=== PATIENT | male | born 1950 | race Caucasian/White ===

== ENCOUNTER 2019-05-15 12:12 | Day surgery (SDC) | payer MEDICARE ==
[~2019-05-15] VITALS: Ht 188 cm; Wt 106.8 kg
[~2019-05-15 12:12] MED LIST: ASPI325EC; Aspir 8181 MG PO; HYDCHL25 PO; Mobic15 MG PO; RXOXYACE PO
--- NOTE | 2019-05-15 14:16 | NUR ---
05/15/19 1416 Tiki Smith PT INTO RECLINER WITHOUT DIFFICULTY. PT DENIES PAIN AND NAUSEA AT THIS TIME. TOLERATING JUICE WELL. ICE AND ELEVATION IMPLEMENTED. VSS
== END 2019-05-15 14:55 | disposition home or self-care (01) ==
LOC: ORSCSDS 12:12
PROVIDERS: Podiatrist Foot & Ankle Surgery
PROC: 01BG0ZZ Excision of Tibial Nerve, Open Approach (ICD-10-PCS; principal; 2019-05-15 13:35)
DX: G57.62 Lesion of plantar nerve, left lower limb (principal); I10 Essential (primary) hypertension; Z79.82 Long term (current) use of aspirin; Z79.899 Other long term (current) drug therapy
CPT/HCPCS: 82947; 88304; J0171; J0690; J2250; J2704; J3010; J7120